=== PATIENT | female | born 1975 | race Caucasian/White ===

== ENCOUNTER 2016-05-25 06:26 | Inpatient (IN) | payer BC ==
[2016-05-14 12:58] VITALS: BMI 50.5
[~2016-05-25 06:26] MED LIST: DEXAMETHASONE SOD PHOSPHATE 10 MG/ML 1 ML VIAL IV ONE; ENOXAPARIN 40 MG/0.4 ML SYRINGE SQ ONE; FAMOTIDINE 20 MG/2 ML VIAL IV PRN; HYDROmorphone 1 MG/ML 1 ML SYRINGE IVP PRN; MIDAZOLAM 2 MG/2 ML VIAL IV PRN; SCOPOLAMINE 1.5MG/72HR PATCH TRANSDERM ONE
[2016-05-25] MEDS ORDERED: LIDOCAINE 1% 20 ML VIAL (10MG/ML) FOR IV START INTRADERMA ONE (06:55)
[2016-05-25] MEDS: LACTATED RINGERS 1,000 ML IV SCH (07:11)
[2016-05-25] MEDS ORDERED: METHYLENE BLUE 10 MG/ML 1 ML VIAL IRRIGATION ONE (07:20)
--- NOTE | 2016-05-25 07:47 | P.GSHP ---
History of Present Illness H&P Date: 05/25/16 Chief Complaint: Morbid obesity This a 41-year-old female who presents today for laparoscopic sleeve gastric. Patient's had previous LAP-BAND surgery. The LAP-BAND was removed secondary dysphagia. Patient has morbid obesity BMI 50. She understood the risks and benefits of the gastric sleeve procedure including conversion to the open procedure and injury to the stomach liver spleen and issues with the gastric staple line such as bleeding, perforation or obstruction. - Constitutional Constitutional: Reports as per HPI Past Medical History Past Medical History: Hyperlipidemia, Hypertension, Osteoarthritis (OA) Additional Past Medical History / Comment(s): MIGRAINE HEADACHES, ARTHRITIS IN JOINTS AND BACK PAIN. History of Any Multi-Drug Resistant Organisms: None Reported Past Surgical History: Bariatric Surgery, Section, Cholecystectomy, Tubal Ligation Additional Past Surgical History / Comment(s): D& C x1 (d/t miscarriage), C- section x2; Original lap band placed 2002 (had several revisions , lost 160 pounds and had a prolapse which led to band removal). 2 more attempts at replacing band. Past Anesthesia/Blood Transfusion Reactions: Motion Sickness, Postoperative Nausea & Vomiting (PONV) Additional Past Anesthesia/Blood Transfusion Reaction / Comment(s): SEVERE PONV. Past Psychological History: No Psychological Hx Reported Smoking Status: Never smoker Past Alcohol Use History: Rare Additional Past Alcohol Use History / Comment(s): twice/year Past Drug Use History: None Reported - Past Family History Mother Family Medical History: Deep Vein Thrombosis (DVT), Hyperlipidemia, Hypertension Additional Family Medical History / Comment(s): . Father Family Medical History: Cancer, CVA/TIA, Hyperlipidemia, Hypertension, Myocardial Infarction ([place]) Additional Family Medical History / Comment(s): severe alcoholic. Medications and Allergies Home Medications Medication Instructions Recorded Confirmed Type Aspirin EC [Ecotrin Low Dose] 81 mg PO HS 02/24/16 05/25/16 History Propranolol LA [Inderal LA] 60 mg PO BID 02/24/16 05/25/16 History Atorvastatin [Lipitor] 20 mg PO DAILY 05/14/16 05/25/16 History diphenhydrAMINE [Benadryl] 50 mg PO HS PRN 05/14/16 05/25/16 History Allergies Allergy/AdvReac Type Severity Reaction Status Date / Time Sulfa (Sulfonamide Allergy Unknown Verified 05/14/16 12:15 Antibiotics) Childhood Surgical - Exam Vital Signs Temp Pulse Resp BP Pulse Ox 97.9 F 71 16 119/74 96 05/25/16 06:50 05/25/16 06:50 05/25/16 06:50 05/25/16 06:50 05/25/16 06:50 - General well developed, no distress - Eyes PERRL - ENT normal pinna - Neck no masses - Respiratory normal expansion - Cardiovascular Rhythm: regular - Abdomen Abdomen: soft, non tender Assessment and Plan Plan: Morbid obesity. We'll perform laparoscopic sleeve gastrectomy.
[2016-05-25] MEDS ORDERED: ACETAMINOPHEN IV (For NPO) 1,000 MG in EMPTY BAG 1 BAG IVPB STA (07:49)
[2016-05-25] MEDS ORDERED: IBUPROFEN IV 400 MG in SODIUM CHLORIDE 0.9% 250 ML IV ONE (07:50)
[2016-05-25] MEDS ORDERED: IBUPROFEN IV 800 MG/8 ML VIAL IV ONE (07:57)
[2016-05-25] MEDS: ceFAZolin 3 GM in SODIUM CHLORIDE 0.9% 100 ML IVPB ONE ×3 (08:15→16:52)
[2016-05-25] MEDS ORDERED: BUPIVACAIN-EPI 0.25%-1:200,000 30 ML VIAL SQ ONE (08:18)
[2016-05-25] MEDS ORDERED: NALOXONE 0.4 MG/ML 1 ML VIAL IV PRN (09:21)
--- NOTE | 2016-05-25 09:21 | P.OP ---
Date of Procedure: 05/25/16 Preoperative Diagnosis: Morbid obesity BMI 50 50 Postoperative Diagnosis: Morbid obesity BMI 50 Procedure(s) Performed: Laparoscopic sleeve gastrectomy Anesthesia: LOBO Surgeon: Jose Raul Craft Estimated Blood Loss (ml): 20 Pathology: other (Stomach) Condition: stable Disposition: PACU Description of Procedure: MThe patient was placed on the operating room table in the supine position. She received general anesthesia and then was placed in dorsal lithotomy position. Her abdomen was prepped and draped in sterile fashion. The skin incision sites were anesthetized 1% local Xylocaine. And then the skin was incised with an 11 blade in the left lateral position. Using a blade less trocar under direct visualization the peritoneal cavity was entered. The abdomen was insufflated and then a 5 mm laparoscope was placed into the peritoneal cavity. A 5 mm trocar was placed in the right epigastric, and right lateral position. A 15 mm trocar was placed in the supra-umbilical position and another 5 mm trocar was placed in the left lateral position. The left lateral lobe of the liver was retracted. The stomach was visualized. The greater curvature of the stomach was then dissected using the Harmonic scissors. The dissection occurred approximately 5 cm from the pylorus to the level of the left [place]. There was no hiatal hernia seen. At this point a 40- Macedonian bougie dilator was placed the oropharynx and passed into the esophagus and into the stomach by the OUTBOARD TECHNICIAN. The sleeve gastrectomy was performed by using the powered echelon stapler with a seam guard buttress material. Sequential firings of the stapler were performed. The gastric remnant was then brought out through the 15 mm trocar site. The dilator was withdrawn. And a orogastric tube was replaced into the stomach. The stomach was insufflated with 200 mL of methylene blue normal saline. There was no evidence of extravasation. The abdomen was irrigated there is no bleeding seen. The Ezra -Talita device was used to close the 15 mm trocar with 0 Vicryl. Skin was closed with interrupted 3-0 Monocryl sutures once the trochars withdrawn. Dermabond dressing was applied. Patient was sent to recovery in stable condition.ctomy
[2016-05-25] MEDS: LACTATED RINGERS 1,000 ML IV ONE ×2 (10:20→11:33)
[2016-05-25] MEDS ORDERED: ONDANSETRON 4 MG/2 ML VIAL IVP ONE (11:52)
[2016-05-25] MEDS: ALBUTEROL NEBULIZED 2.5 MG/3 ML INHALATION SCH ×3 (12:29→21:39)
[2016-05-25] MEDS: 0.9% NACL WITH KCL 20 MEQ/L 1,000 ML IV SCH ×2 (12:43→19:10)
[2016-05-25] MEDS: KETOROLAC 30 MG/ML 1 ML VIAL IVP SCH ×3 (12:46→23:03)
[2016-05-25] MEDS: HYDROmorphone 1 MG/ML 1 ML SYRINGE IVP PRN (16:57)
[2016-05-25] MEDS ORDERED: ONDANSETRON 4 MG/2 ML VIAL IVP PRN (17:01)
[2016-05-26] MEDS: 0.9% NACL WITH KCL 20 MEQ/L 1,000 ML IV SCH ×2 (00:30→01:25)
[2016-05-26] MEDS: HYDROmorphone 1 MG/ML 1 ML SYRINGE IVP PRN (02:08)
[2016-05-26] MEDS: KETOROLAC 30 MG/ML 1 ML VIAL IVP SCH ×2 (06:03→13:08)
[2016-05-26] MEDS: LACTATED RINGERS 1,000 ML IV SCH (06:08)
[2016-05-26] MEDS ORDERED: 1: MVI, ADULT NO.4 WITH VIT K 10 ML, THIAMINE 100 MG, FOLIC ACID 1 MG, POTASSIUM CHLORID IV SCH ×6 (08:00)
[2016-05-26 08:26] LABS: Basophils % (A) 1 %; CH 30.3; CHCM 33.4; Eosinophils # (A) 0.1 k/uL (0-0.7); Eosinophils % (A) 1 %; HDW 2.87; HGB 12.8 gm/dL (11.4-16.0); Luc # (Auto) 0.17; Luc % (Auto) 2; Lymphocytes # (A) 1.9 k/uL (1.0-4.8); Lymphocytes % (A) 22 %; MCHC 32.8 g/dL (31.0-37.0); MCV 91.2 fL (80.0-100.0); Mean Platelet Volume 7.9; Monocytes # (A) 0.6 k/uL (0-1.0); Monocytes % (A) 7 %; Neutrophils % (A) 68 %; RBC 4.28 m/uL (3.80-5.40); RDW 13.8 % (11.5-15.5); WBC 8.7 k/uL (3.8-10.6); WBC (Perox) 8.96
[2016-05-26 08:35] LABS: Anion Gap 12 mmol/L; Blood Urea Nitrogen 9 mg/dL (7-17); Carbon Dioxide 23 mmol/L (22-30); Chloride 106 mmol/L (98-107); Non-African American GFR(MDRD) >60 (>60 ml/min/1.73 sqM); Potassium 4.5 mmol/L (3.5-5.1); Sodium 141 mmol/L (137-145)
[2016-05-26] MEDS ORDERED: PANTOPRAZOLE 40 MG/10 ML VIAL IV SCH (09:00)
[2016-05-26] MEDS ORDERED: ENOXAPARIN 60 MG/0.6 ML SYRINGE SQ SCH (09:00)
[2016-05-26] MEDS: ALBUTEROL NEBULIZED 2.5 MG/3 ML INHALATION SCH ×2 (09:02→11:34)
[2016-05-26] MEDS ORDERED: SODIUM CHLORIDE 0.9% 1,000 ML BAG ONE (09:04)
--- NOTE | 2016-05-26 09:34 | FL ---
EXAMINATION TYPE: FL UGI DATE OF EXAM: 05/26/2016 8:52 AM COMPARISON: NONE HISTORY: Status post gastric sleeve TECHNIQUE: A single contrast UGI study is performed. FINDINGS: Patient was given 50 cc Omni 350 orally, 42 seconds fluoroscopy time Attention directed to the gastroesophageal junction. No extravasation or obstruction to flow. Basilar atelectasis is noted incidentally. Contrast courses into the bowel. Surgical clips in the right uppe r quadrant. IMPRESSION: No evidence convocation status post gastric sleeve. Limited exam.
[2016-05-26] MEDS ORDERED: HYDROcodone/APAP 7.5-325MG 1 EACH TAB PO PRN (13:13)
[2016-05-26 14:29] VITALS: BP 129/77; PULSE 86; RESP 16; TEMP 97.9
--- NOTE | 2016-05-26 15:51 | P.DS ---
Providers Date of admission: 05/25/16 06:26 Expected date of discharge: 05/26/16 Attending physician: Jose Raul Craft Primary care physician: Armando Suárez MD Hospital Course: Patient is a 41-year-old female with medical history significant for morbid obesity and previous lap band surgery that was removed secondary to dysphagia. Patient presented to the hospital for elective laparoscopic sleeve gastrectomy. Patient tolerated procedure well. Upper GI series postsurgery with no evidence of leak or obstruction. Patient had an uneventful postop recovery. Patient was felt stable for discharge to home. Discharge diagnoses: 1. Morbid obesity status post laparoscopic sleeve gastrectomy. 2. History of previous lap band surgery with removal secondary to dysphagia. The above impression and plan have been discussed and directed by Dr. Craft. Christal RODRIGUEZ acting as scribe for Dr. Craft. Pertinent Studies: Upper GI series Procedures: Laparoscopic sleeve gastrectomy Patient Condition at Discharge: Good Plan - Discharge Summary New Discharge Prescriptions: HYDROcodone/APAP 7.5-325MG [Aladdin 7.5-325] 1 tab PO Q6HR PRN #28 tab PRN Reason: Pain Omeprazole [PriLOSEC] 40 mg PO DAILY #30 capsule. Ondansetron Odt [Zofran ODT] 8 mg PO Q8HR PRN #12 tab PRN Reason: Nausea Sucralfate [Carafate] 1 gm PO ACHS #90 tablet Discharge Medication List Aspirin EC [Ecotrin Low Dose] 81 mg PO HS 02/24/16 [History] Propranolol LA [Inderal LA] 60 mg PO BID 02/24/16 [History] Atorvastatin [Lipitor] 20 mg PO DAILY 05/14/16 [History] HYDROcodone/APAP 7.5-325MG [Aladdin 7.5-325] 1 tab PO Q6HR PRN #28 tab 05/26/16 [ Rx] Omeprazole [PriLOSEC] 40 mg PO DAILY #30 capsule. 05/26/16 [Rx] Ondansetron Odt [Zofran ODT] 8 mg PO Q8HR PRN #12 tab 05/26/16 [Rx] Sucralfate [Carafate] 1 gm PO ACHS #90 tablet 05/26/16 [Rx] Follow up Appointment(s)/Referral(s): Armando Suárez MD [Primary Care Provider] - 1 Week (No answer at office. Patient to call and schedule follow up appointment.) Jose Raul Craft MD [STAFF PHYSICIAN] - 06/08/16 2:00 pm (In bariatric clinic ) Patient Instructions/Handouts: *Surgery [facility] - Scopalamine Patch Instructions, Laparoscopic Sleeve Gastrectomy (DC) Activity/Diet/Wound Care/Special Instructions: No heavy lifting, pushing, or pulling items greater than 10 pounds. Bariatric diet as directed Shower daily, no soaking in bath tubs, pools, or hot tubs. No driving while taking pain medication. Notify surgeon with any signs or symptoms of infection, increased pain, or not tolerating diet. Discharge Disposition: HOME SELF-CARE
[2016-05-26] MEDS ORDERED: PROPRANOLOL LA 60 MG CAP.SA.24H PO SCH (21:00)
[2016-05-26] MEDS ORDERED: ASPIRIN 81 MG CHEW PO SCH (21:00)
[2016-05-27] MEDS ORDERED: ATORVASTATIN 20 MG TAB PO SCH (09:00)
== END 2016-05-26 15:10 | disposition home or self-care (01) | DRG 621 ==
LOC: 2ORWHC 06:26 → 3SUR 09:28
PROVIDERS: ADMIT Surgery; ATTEND Surgery
PROC: 0DB64Z3 Excision of Stomach, Percutaneous Endoscopic Approach, Vertical (ICD-10-PCS; principal; 2016-05-25 07:40)
DX: E66.01 Morbid (severe) obesity due to excess calories (principal); I10 Essential (primary) hypertension; E78.5 Hyperlipidemia, unspecified; M19.90 Unspecified osteoarthritis, unspecified site; G43.909 Migraine, unspecified, not intractable, without status migrainosus; M54.9 Dorsalgia, unspecified; Z68.43 Body mass index [BMI] 50.0-59.9, adult; Z98.84 Bariatric surgery status; Z79.82 Long term (current) use of aspirin; Z79.899 Other long term (current) drug therapy; Z88.2 Allergy status to sulfonamides; Z82.49 Family history of ischemic heart disease and other diseases of the circulatory system
CPT/HCPCS: 74240; 80051; 81025; 82565; 84520; 85025; 88307; 92950; 94002; 94640; 94760

== ENCOUNTER → 2016-06-08 | Outpatient (CLI) | payer BC ==
--- NOTE | 2016-06-08 15:49 | P.HPBAR ---
Bariatric H&P - History & Physicial H&P Date: 06/08/16 History & Physicial: Visit/CC: post sleeve Patient initial contact: Initial weight: 80.853 kg Initial weight in pounds: 178.25 Height: 5 ft 6.5 in Initial BMI: 28.3 Last weight: Current weight: 133.101 kg Current weight in pounds: 293.00 Current BMI: 46.6 [place] body weight (based on NIH guidelines): 60.101 kg Excess body weight loss: The patient is a 41 year-old F who presents for Bariatric Assessment. The patient presents for sleeve gastrectomy follow-up. She is approximately 2 weeks postop. She is doing quite well. She has no pain. Past Medical History Past Medical History: Hyperlipidemia, Hypertension, Osteoarthritis (OA) Additional Past Medical History / Comment(s): MIGRAINE HEADACHES, ARTHRITIS IN JOINTS AND BACK PAIN. History of Any Multi-Drug Resistant Organisms: None Reported Past Surgical History: Bariatric Surgery, Section, Cholecystectomy, Tubal Ligation Additional Past Surgical History / Comment(s): 05/25/16 laproscopic sleeve gastrectomy. Other surgical hx: D& C x1 (d/t miscarriage), x2; Original lap band placed 2002 (had several revisions , lost 160 pounds and had a prolapse which led to band removal). 2 more attempts at replacing band. Past Anesthesia/Blood Transfusion Reactions: Motion Sickness, Postoperative Nausea & Vomiting (PONV) Additional Past Anesthesia/Blood Transfusion Reaction / Comm: SEVERE PONV. Past Psychological History: No Psychological Hx Reported Smoking Status: Never smoker Past Alcohol Use History: Rare Additional Past Alcohol Use History / Comment(s): twice/year Past Drug Use History: None Reported - Past Family History Mother Family Medical History: Deep Vein Thrombosis (DVT), Hyperlipidemia, Hypertension Additional Family Medical History / Comment(s): . Father Family Medical History: Cancer, CVA/TIA, Hyperlipidemia, Hypertension, Myocardial Infarction ([place]) Additional Family Medical History / Comment(s): severe alcoholic. Surgical - Exam Vital Signs Temp Pulse Resp BP 98.4 F 74 16 157/99 06/08/16 14:07 06/08/16 14:07 06/08/16 14:07 06/08/16 14:07 - General well developed, no distress - Eyes PERRL - ENT normal pinna - Neck no masses - Respiratory normal expansion - Cardiovascular Rhythm: regular - Abdomen Abdomen: soft, non tender Bariatric Assessment & Plan Plan: Morbid obesity. Patient is status post sleeve yesterday. She is doing quite well. Her incision sites are clean dry and intact. She'll follow-up in one month. Bariatric Checklist Checklist: Plan: Checklist: EGD: 1. Hiatal hernia: 2. H. Pylori: HgbA1c: Vitamin D: Smoking: Never smoker Primary care physician referral: Psychiatry clearance: Cardiology clearance: Sleep study: Diet journal: VTE risk score: VTE risk level: Rehab needs at discharge:
== END | disposition home or self-care (01) ==
CPT/HCPCS: 99211

== ENCOUNTER → 2016-06-22 | Outpatient (CLI) | payer BC ==
[2016-06-22 13:09] VITALS: BP 129/77; PULSE 64; RESP 16; TEMP 98.2; BMI 45.8
--- NOTE | 2016-07-20 13:19 | P.HPBAR ---
Bariatric H&P - History & Physicial H&P Date: 06/22/16 History & Physicial: Visit/CC: sleeve follow-up Patient initial contact: Initial weight: 80.853 kg Initial weight in pounds: 178.25 Height: 5 ft 6.5 in Initial BMI: 28.3 Last weight: Current weight: 130.833 kg Current weight in pounds: 288.00 Current BMI: 45.8 [place] body weight (based on NIH guidelines): 60.101 kg Excess body weight loss: The patient is a 41 year-old F who presents for Bariatric Assessment. The patient presents for sleeve gastrectomy follow-up. She is prostate 1 month postop. She is doing well. She has some complaints of arthritis. She has elected to go on home O2 incentive a CPAP machine for sleep apnea. Review of Systems Constitutional: Reports as per HPI Past Medical History Past Medical History: Hyperlipidemia, Hypertension, Osteoarthritis (OA) Additional Past Medical History / Comment(s): MIGRAINE HEADACHES, ARTHRITIS IN JOINTS AND BACK PAIN. History of Any Multi-Drug Resistant Organisms: None Reported Past Surgical History: Bariatric Surgery, Section, Cholecystectomy, Tubal Ligation Additional Past Surgical History / Comment(s): 05/25/16 laproscopic sleeve gastrectomy. Other surgical hx: D& C x1 (d/t miscarriage), x2; Original lap band placed 2002 (had several revisions , lost 160 pounds and had a prolapse which led to band removal). 2 more attempts at replacing band. Past Anesthesia/Blood Transfusion Reactions: Motion Sickness, Postoperative Nausea & Vomiting (PONV) Additional Past Anesthesia/Blood Transfusion Reaction / Comm: SEVERE PONV. Past Psychological History: No Psychological Hx Reported Smoking Status: Never smoker Past Alcohol Use History: Rare Additional Past Alcohol Use History / Comment(s): twice/year Past Drug Use History: None Reported - Past Family History Mother Family Medical History: Deep Vein Thrombosis (DVT), Hyperlipidemia, Hypertension Additional Family Medical History / Comment(s): . Father Family Medical History: Cancer, CVA/TIA, Hyperlipidemia, Hypertension, Myocardial Infarction ([place]) Additional Family Medical History / Comment(s): severe alcoholic. Surgical - Exam Vital Signs Temp Pulse Resp BP 98.2 F 64 16 129/77 06/22/16 13:02 06/22/16 13:02 06/22/16 13:02 06/22/16 13:02 - General well developed, no distress - Eyes PERRL - ENT normal pinna - Neck no masses - Respiratory normal expansion - Cardiovascular Rhythm: regular - Abdomen Abdomen: soft, non tender Bariatric Assessment & Plan Plan: RBC slowly resolving. Status post sleeve yesterday. Patient is doing well. Her arthritis symptoms we observed. She'll follow-up in a month. Bariatric Checklist Checklist: Plan: Checklist: EGD: 1. Hiatal hernia: 2. H. Pylori: HgbA1c: Vitamin D: Smoking: Never smoker Primary care physician referral: Psychiatry clearance: Cardiology clearance: Sleep study: Diet journal: VTE risk score: VTE risk level: Rehab needs at discharge:
== END | disposition home or self-care (01) ==
LOC: BARWHC3 12:51
PROVIDERS: ATTEND Surgery
DX: Z71.3 Dietary counseling and surveillance (principal); E66.01 Morbid (severe) obesity due to excess calories; Z68.42 Body mass index [BMI] 45.0-49.9, adult
CPT/HCPCS: 99211

== ENCOUNTER → 2016-07-20 | Outpatient (CLI) | payer BC ==
[2016-07-20 13:25] VITALS: BP 139/88; PULSE 67; RESP 16; TEMP 98.7; BMI 44.4
--- NOTE | 2016-07-20 13:48 | P.HPBAR ---
Bariatric H&P - History & Physicial H&P Date: 07/20/16 History & Physicial: Visit/CC: sleeve follow-up Patient initial contact: Initial weight: 80.853 kg Initial weight in pounds: 178.25 Height: 5 ft 6.5 in Initial BMI: 28.3 Last weight: Current weight: 126.779 kg Current weight in pounds: 279.00 Current BMI: 44.4 [place] body weight (based on NIH guidelines): 60.101 kg Excess body weight loss: The patient is a 41 year-old F who presents for Bariatric Assessment. Patient presents for sleeve follow-up. She is doing very well. She has had minimal GERD symptoms. She has lost 9 pounds since her last visit. Past Medical History Past Medical History: Hyperlipidemia, Hypertension, Osteoarthritis (OA) Additional Past Medical History / Comment(s): MIGRAINE HEADACHES, ARTHRITIS IN JOINTS AND BACK PAIN. History of Any Multi-Drug Resistant Organisms: None Reported Past Surgical History: Bariatric Surgery, Section, Cholecystectomy, Tubal Ligation Additional Past Surgical History / Comment(s): 05/25/16 laproscopic sleeve gastrectomy. Other surgical hx: D& C x1 (d/t miscarriage), x2; Original lap band placed 2002 (had several revisions , lost 160 pounds and had a prolapse which led to band removal). 2 more attempts at replacing band. Past Anesthesia/Blood Transfusion Reactions: Motion Sickness, Postoperative Nausea & Vomiting (PONV) Additional Past Anesthesia/Blood Transfusion Reaction / Comm: SEVERE PONV. Past Psychological History: No Psychological Hx Reported Smoking Status: Never smoker Past Alcohol Use History: Rare Additional Past Alcohol Use History / Comment(s): twice/year Past Drug Use History: None Reported - Past Family History Mother Family Medical History: Deep Vein Thrombosis (DVT), Hyperlipidemia, Hypertension Additional Family Medical History / Comment(s): . Father Family Medical History: Cancer, CVA/TIA, Hyperlipidemia, Hypertension, Myocardial Infarction ([place]) Additional Family Medical History / Comment(s): severe alcoholic. Surgical - Exam Vital Signs Temp Pulse Resp BP 98.7 F 67 16 139/88 07/20/16 13:21 07/20/16 13:21 07/20/16 13:21 07/20/16 13:21 - General well developed - Abdomen Abdomen: soft, non tender Bariatric Assessment & Plan Plan: Status post sleeve yesterday. Patient has some minimal GERD symptoms which will be observed. She'll currently take Prilosec daily. The patient will follow-up in one month. Bariatric Checklist Checklist: Plan: Checklist: EGD: 1. Hiatal hernia: 2. H. Pylori: HgbA1c: Vitamin D: Smoking: Never smoker Primary care physician referral: Dr. Kamini Mcneal Psychiatry clearance: Cardiology clearance: Sleep study: Diet journal: VTE risk score: VTE risk level: Rehab needs at discharge:
== END | disposition home or self-care (01) ==
LOC: BARWHC3 12:59
PROVIDERS: ATTEND Surgery
DX: Z48.815 Encounter for surgical aftercare following surgery on the digestive system (principal); Z71.3 Dietary counseling and surveillance; E66.01 Morbid (severe) obesity due to excess calories; Z68.41 Body mass index [BMI] 40.0-44.9, adult; K21.9 Gastro-esophageal reflux disease without esophagitis; Z98.84 Bariatric surgery status; Z79.899 Other long term (current) drug therapy
CPT/HCPCS: 99211

== ENCOUNTER → 2016-09-21 | Outpatient (CLI) | payer BC ==
[2016-09-21 14:01] VITALS: BP 143/89; PULSE 90; TEMP 97.7; BMI 42.7
--- NOTE | 2016-09-21 16:45 | P.HPBAR ---
Bariatric H&P - History & Physicial H&P Date: 09/21/16 History & Physicial: Visit/CC: three month follow up Patient initial contact: Initial weight: 80.853 kg Initial weight in pounds: 178.25 Height: 5 ft 6.5 in Initial BMI: 28.3 Last weight: Current weight: 121.971 kg Current weight in pounds: 268.90 Current BMI: 42.7 [place] body weight (based on NIH guidelines): 60.101 kg Excess body weight loss: The patient is a 41 year-old F who presents for Bariatric Assessment. Patient presents today for sleeve gastrectomy fall. She has lost 11 pounds since her last visit. She has some minimal GERD. Past Medical History Past Medical History: Hyperlipidemia, Hypertension, Osteoarthritis (OA) Additional Past Medical History / Comment(s): MIGRAINE HEADACHES, ARTHRITIS IN JOINTS AND BACK PAIN. History of Any Multi-Drug Resistant Organisms: None Reported Past Surgical History: Bariatric Surgery, Section, Cholecystectomy, Tubal Ligation Additional Past Surgical History / Comment(s): 05/25/16 laproscopic sleeve gastrectomy. Other surgical hx: D& C x1 (d/t miscarriage), x2; Original lap band placed 2002 (had several revisions , lost 160 pounds and had a prolapse which led to band removal). 2 more attempts at replacing band. Past Anesthesia/Blood Transfusion Reactions: Motion Sickness, Postoperative Nausea & Vomiting (PONV) Additional Past Anesthesia/Blood Transfusion Reaction / Comm: SEVERE PONV. Past Psychological History: No Psychological Hx Reported Smoking Status: Never smoker Past Alcohol Use History: Rare Additional Past Alcohol Use History / Comment(s): twice/year Past Drug Use History: None Reported - Past Family History Mother Family Medical History: Deep Vein Thrombosis (DVT), Hyperlipidemia, Hypertension Additional Family Medical History / Comment(s): . Father Family Medical History: Cancer, CVA/TIA, Hyperlipidemia, Hypertension, Myocardial Infarction ([place]) Additional Family Medical History / Comment(s): severe alcoholic. Surgical - Exam Vital Signs Temp Pulse BP 97.7 F 90 143/89 09/21/16 13:46 09/21/16 13:46 09/21/16 13:46 - General well developed, no distress - Eyes PERRL - ENT normal pinna - Neck no masses - Respiratory normal expansion - Cardiovascular Rhythm: regular - Abdomen Abdomen: soft, non tender Bariatric Assessment & Plan Plan: The patient is doing well from her sleeve yesterday. Her GERD symptoms we will observe. She'll follow-up in one month. Bariatric Checklist Checklist: Plan: Checklist: EGD: 1. Hiatal hernia: 2. H. Pylori: HgbA1c: Vitamin D: Smoking: Never smoker Primary care physician referral: Dr. Kamini Mcneal Psychiatry clearance: Cardiology clearance: Sleep study: Diet journal: VTE risk score: VTE risk level: Rehab needs at discharge:
== END | disposition home or self-care (01) ==
LOC: BARWHC3 13:12
PROVIDERS: ATTEND Surgery
DX: E66.01 Morbid (severe) obesity due to excess calories (principal); E78.5 Hyperlipidemia, unspecified; I10 Essential (primary) hypertension; M19.90 Unspecified osteoarthritis, unspecified site; Z68.41 Body mass index [BMI] 40.0-44.9, adult
CPT/HCPCS: 97803; 99211

== ENCOUNTER → 2016-11-09 | Outpatient (CLI) | payer BC ==
[2016-11-09 14:04] VITALS: BP 137/73; PULSE 69; RESP 16; TEMP 98.6; BMI 42.2
--- NOTE | 2016-11-23 17:14 | P.HPBAR ---
Bariatric H&P - History & Physicial H&P Date: 11/09/16 History & Physicial: Visit/CC: sleeve follow up Patient initial contact: Initial weight: 80.853 kg Initial weight in pounds: 178.25 Height: 5 ft 6.5 in Initial BMI: 28.3 Last weight: Current weight: 120.372 kg Current weight in pounds: 265.00 Current BMI: 42.2 [place] body weight (based on NIH guidelines): 60.101 kg Excess body weight loss: The patient is a 41 year-old F who presents for Bariatric Assessment. Patient presents today for sleeve gastrectomy fall. She is doing quite well. She's had poor weight loss last month. Her GERD symptoms are minimal. Past Medical History Past Medical History: Hyperlipidemia, Hypertension, Osteoarthritis (OA) Additional Past Medical History / Comment(s): MIGRAINE HEADACHES, ARTHRITIS IN JOINTS AND BACK PAIN. History of Any Multi-Drug Resistant Organisms: None Reported Past Surgical History: Bariatric Surgery, Section, Cholecystectomy, Tubal Ligation Additional Past Surgical History / Comment(s): 05/25/16 laproscopic sleeve gastrectomy. Other surgical hx: D& C x1 (d/t miscarriage), x2; Original lap band placed 2002 (had several revisions , lost 160 pounds and had a prolapse which led to band removal). 2 more attempts at replacing band. Past Anesthesia/Blood Transfusion Reactions: Motion Sickness, Postoperative Nausea & Vomiting (PONV) Additional Past Anesthesia/Blood Transfusion Reaction / Comm: SEVERE PONV. Past Psychological History: No Psychological Hx Reported Smoking Status: Never smoker - Past Family History Mother Family Medical History: Deep Vein Thrombosis (DVT), Hyperlipidemia, Hypertension Additional Family Medical History / Comment(s): . Father Family Medical History: Cancer, CVA/TIA, Hyperlipidemia, Hypertension, Myocardial Infarction ([place]) Additional Family Medical History / Comment(s): severe alcoholic. Surgical - Exam Vital Signs Temp Pulse Resp BP 98.6 F 69 16 137/73 11/09/16 14:02 11/09/16 14:02 11/09/16 14:02 11/09/16 14:02 - General well developed, no distress - Eyes PERRL - ENT normal pinna - Abdomen Abdomen: soft, non tender Bariatric Assessment & Plan Plan: Status post sleeve gastrectomy. Patient will attempt to reduce her calories via dieting. Her GERD symptoms are minimal be observed. She'll follow-up in one month. Bariatric Checklist Checklist: Plan: Checklist: EGD: 1. Hiatal hernia: 2. H. Pylori: HgbA1c: Vitamin D: Smoking: Never smoker Primary care physician referral: Dr. Kamini Mcneal Psychiatry clearance: Cardiology clearance: Sleep study: Diet journal: VTE risk score: VTE risk level: Rehab needs at discharge:
== END | disposition home or self-care (01) ==
LOC: BARWHC3 13:03
PROVIDERS: ATTEND Surgery
DX: Z09 Encounter for follow-up examination after completed treatment for conditions other than malignant neoplasm (principal); E78.5 Hyperlipidemia, unspecified; I10 Essential (primary) hypertension; Z98.84 Bariatric surgery status
CPT/HCPCS: 99211

== ENCOUNTER → 2017-01-25 | Outpatient (CLI) | payer BC ==
[2017-01-25 13:22] VITALS: BP 126/90; PULSE 62; RESP 62; TEMP 98.2; BMI 41.6
--- NOTE | 2017-01-25 13:45 | P.HPBAR ---
Bariatric H&P - History & Physicial H&P Date: 01/25/17 History & Physicial: Visit/CC: sleeve follow up Patient initial contact: Initial weight: 80.853 kg Initial weight in pounds: 178.25 Height: 5 ft 6.5 in Initial BMI: 28.3 Last weight: 266 Current weight: 118.841 kg Current weight in pounds: 262.00 Current BMI: 41.6 [place] body weight (based on NIH guidelines): 60.101 kg Excess body weight loss: The patient is a 41 year-old F who presents for Bariatric Assessment. Patient presents today for sleeve gastrectomy follow-up. She has been sick recently due to ureteral stones. She had a stent placed. She just now has started to feel normal again. He's had some minimal GERD symptoms. Past Medical History Past Medical History: Hyperlipidemia, Hypertension, Osteoarthritis (OA) Additional Past Medical History / Comment(s): MIGRAINE HEADACHES, ARTHRITIS IN JOINTS AND BACK PAIN. History of Any Multi-Drug Resistant Organisms: None Reported Past Surgical History: Bariatric Surgery, Section, Cholecystectomy, Tubal Ligation Additional Past Surgical History / Comment(s): 05/25/16 laproscopic sleeve gastrectomy. Other surgical hx: D& C x1 (d/t miscarriage), x2; Original lap band placed 2002 (had several revisions , lost 160 pounds and had a prolapse which led to band removal). 2 more attempts at replacing band. Past Anesthesia/Blood Transfusion Reactions: Motion Sickness, Postoperative Nausea & Vomiting (PONV) Additional Past Anesthesia/Blood Transfusion Reaction / Comm: SEVERE PONV. Past Psychological History: No Psychological Hx Reported Smoking Status: Never smoker Past Alcohol Use History: Rare Additional Past Alcohol Use History / Comment(s): twice/year Past Drug Use History: None Reported - Past Family History Mother Family Medical History: Deep Vein Thrombosis (DVT), Hyperlipidemia, Hypertension Additional Family Medical History / Comment(s): . Father Family Medical History: Cancer, CVA/TIA, Hyperlipidemia, Hypertension, Myocardial Infarction ([place]) Additional Family Medical History / Comment(s): severe alcoholic. Surgical - Exam Vital Signs Temp Pulse Resp BP 98.2 F 62 62 H 126/90 01/25/17 13:18 01/25/17 13:18 01/25/17 13:18 01/25/17 13:18 - General well developed, no distress - Eyes PERRL - Abdomen Abdomen: soft, non tender Bariatric Assessment & Plan Plan: Status post sleeve yesterday. Patient has had some minimal GERD. This will be observed. The patient will focus on her diet and lifestyle changes for improvement weight loss. Bariatric Checklist Checklist: Plan: Checklist: EGD: 1. Hiatal hernia: 2. H. Pylori: HgbA1c: Vitamin D: Smoking: Never smoker Primary care physician referral: Dr. Kamini Mcneal Psychiatry clearance: Cardiology clearance: Sleep study: Diet journal: VTE risk score: VTE risk level: Rehab needs at discharge:
== END ==
LOC: BARWHC3 12:43
PROVIDERS: ATTEND Surgery
DX: Z48.815 Encounter for surgical aftercare following surgery on the digestive system (principal); Z98.84 Bariatric surgery status; E66.01 Morbid (severe) obesity due to excess calories; K21.9 Gastro-esophageal reflux disease without esophagitis
CPT/HCPCS: 97803; 99211

== ENCOUNTER → 2017-02-22 | Outpatient (CLI) | payer BC ==
[2017-02-22 13:53] VITALS: BMI 41.5
--- NOTE | 2017-02-22 16:24 | P.HPBAR ---
Bariatric H&P - History & Physicial H&P Date: 02/22/17 History & Physicial: Visit/CC: sleeve f/u (May 2016) Patient initial contact: Initial weight: 142.882 kg Initial weight in pounds: 315.00 Height: 5 ft 6.5 in Initial BMI: 50.1 Last weight: Current weight: 118.569 kg Current weight in pounds: 261.40 Current BMI: 41.5 [place] body weight (based on NIH guidelines): 60.101 kg Excess body weight loss: 29.3% The patient is a 42 year-old F who presents for Bariatric Assessment. Patient presents today for sleeve gastrectomy follow-up. She's had some recent issues with hypotension and GERD. She is being evaluated by her crm coordinator. She is scheduled for a tilt table test. She denies any dysphagia. Past Medical History Past Medical History: Hyperlipidemia, Hypertension, Osteoarthritis (OA), Renal Disease Additional Past Medical History / Comment(s): MIGRAINE HEADACHES, ARTHRITIS IN JOINTS AND BACK PAIN. ON 02/22/17: patient states she has to have a tilt table test due to recent hypotension. Kidney stones (Jan 2017) History of Any Multi-Drug Resistant Organisms: None Reported Past Surgical History: Bariatric Surgery, Section, Cholecystectomy, Tubal Ligation Additional Past Surgical History / Comment(s): 05/25/16 laproscopic sleeve gastrectomy. Other surgical hx: D& C x1 (d/t miscarriage), x2; Original lap band placed 2002 (had several revisions , lost 160 pounds and had a prolapse which led to band removal). 2 more attempts at replacing band. Past Anesthesia/Blood Transfusion Reactions: Motion Sickness, Postoperative Nausea & Vomiting (PONV) Additional Past Anesthesia/Blood Transfusion Reaction / Comm: SEVERE PONV. Past Psychological History: No Psychological Hx Reported Smoking Status: Never smoker Past Alcohol Use History: Rare Additional Past Alcohol Use History / Comment(s): twice/year Past Drug Use History: None Reported - Past Family History Mother Family Medical History: Deep Vein Thrombosis (DVT), Hyperlipidemia, Hypertension Additional Family Medical History / Comment(s): . Father Family Medical History: Cancer, CVA/TIA, Hyperlipidemia, Hypertension, Myocardial Infarction ([place]) Additional Family Medical History / Comment(s): severe alcoholic. Surgical - Exam - General well developed, no distress - Eyes PERRL - Abdomen Abdomen: soft, non tender Bariatric Assessment & Plan Plan: The patient has gained some weight. Her GERD symptoms are minimal abuser. She' ll follow-up in 8 weeks for recheck. Bariatric Checklist Checklist: Plan: Checklist: EGD: 1. Hiatal hernia: 2. H. Pylori: HgbA1c: Vitamin D: Smoking: Never smoker Primary care physician referral: Dr. Suárez ([place]) Psychiatry clearance: Cardiology clearance: Sleep study: Diet journal: VTE risk score: VTE risk level: Rehab needs at discharge:
== END | disposition home or self-care (01) ==
LOC: BARWHC3 13:21
PROVIDERS: ATTEND Surgery
DX: Z48.815 Encounter for surgical aftercare following surgery on the digestive system (principal); K21.9 Gastro-esophageal reflux disease without esophagitis; Z98.84 Bariatric surgery status
CPT/HCPCS: 99211

== ENCOUNTER → 2017-06-07 | Outpatient (CLI) | payer BC ==
[2017-06-07 13:39] VITALS: BMI 40.3
[2017-06-07 13:44] VITALS: BP 110/67; PULSE 72; TEMP 97.8
--- NOTE | 2017-06-07 16:37 | P.HPBAR ---
Bariatric H&P - History & Physicial H&P Date: 06/07/17 History & Physicial: Visit/CC: one year follow up Patient initial contact: Initial weight: 142.882 kg Initial weight in pounds: 315.00 Height: 5 ft 6.5 in Initial BMI: 50.1 Last weight: Current weight: 115.031 kg Current weight in pounds: 253.60 Current BMI: 40.3 [place] body weight (based on NIH guidelines): 60.328 kg Excess body weight loss: 33.6% The patient is a 42 year-old F who presents for Bariatric Assessment. The patient presents today for sleeve gastrectomy follow-up. She is lost 8 pounds her last visit. She has had trouble with some kidney stones and diabetes. Her hemoglobin A1c is 6.5. Past Medical History Past Medical History: Diabetes Mellitus, Hyperlipidemia, Hypertension, Osteoarthritis (OA), Renal Disease Additional Past Medical History / Comment(s): MIGRAINE HEADACHES, ARTHRITIS IN JOINTS AND BACK PAIN. ON 02/22/17: patient states she has to have a tilt table test due to recent hypotension. Kidney stones (Jan 2017) kidney stones 1-18 History of Any Multi-Drug Resistant Organisms: None Reported Past Surgical History: Bariatric Surgery, Section, Cholecystectomy, Tubal Ligation Additional Past Surgical History / Comment(s): 05/25/16 laproscopic sleeve gastrectomy. Other surgical hx: D& C x1 (d/t miscarriage), x2; Original lap band placed 2002 (had several revisions , lost 160 pounds and had a prolapse which led to band removal). 2 more attempts at replacing band. Past Anesthesia/Blood Transfusion Reactions: Motion Sickness, Postoperative Nausea & Vomiting (PONV) Additional Past Anesthesia/Blood Transfusion Reaction / Comm: SEVERE PONV. Past Psychological History: No Psychological Hx Reported Smoking Status: Never smoker Past Alcohol Use History: Rare Additional Past Alcohol Use History / Comment(s): twice/year Past Drug Use History: None Reported - Past Family History Mother Family Medical History: Deep Vein Thrombosis (DVT), Hyperlipidemia, Hypertension Additional Family Medical History / Comment(s): . Father Family Medical History: Cancer, CVA/TIA, Hyperlipidemia, Hypertension, Myocardial Infarction ([place]) Additional Family Medical History / Comment(s): severe alcoholic. Surgical - Exam Vital Signs Temp Pulse BP 97.8 F 72 110/67 06/07/17 13:24 06/07/17 13:24 06/07/17 13:24 - General well developed, no distress - Eyes PERRL - ENT normal pinna - Neck no masses - Abdomen Abdomen: soft, non tender Bariatric Assessment & Plan Plan: Status post sleeve yesterday. Patient is doing fairly well. Her diabetes was managed by diet and exercise. Her GERD symptoms are minimal will be observed. She'll follow-up in 8 weeks.. Bariatric Checklist Checklist: Plan: Checklist: EGD: 1. Hiatal hernia: 2. H. Pylori: HgbA1c: Vitamin D: Smoking: Never smoker Primary care physician referral: Dr. Suárez ([place]) Psychiatry clearance: Cardiology clearance: Sleep study: Diet journal: VTE risk score: VTE risk level: Rehab needs at discharge:
== END | disposition home or self-care (01) ==
LOC: BARWHC3 12:49
PROVIDERS: ATTEND Surgery
DX: Z48.815 Encounter for surgical aftercare following surgery on the digestive system (principal); E66.01 Morbid (severe) obesity due to excess calories; K21.9 Gastro-esophageal reflux disease without esophagitis; E11.9 Type 2 diabetes mellitus without complications; Z71.3 Dietary counseling and surveillance; Z98.84 Bariatric surgery status; Z68.41 Body mass index [BMI] 40.0-44.9, adult
CPT/HCPCS: 97803; 99211

== ENCOUNTER → 2018-06-06 | Outpatient (CLI) | payer BC ==
[2018-06-06 13:33] VITALS: BP 113/78; PULSE 73; RESP 16; TEMP 98.2; BMI 41.8
--- NOTE | 2018-06-06 14:45 | P.HPBAR ---
Bariatric H&P - History & Physicial H&P Date: 06/06/18 History & Physicial: Visit/CC: sleeve follow-up Patient initial contact: Initial weight: 142.882 kg Initial weight in pounds: 315.00 Height: 5 ft 6.5 in Initial BMI: 50.1 Last weight: Current weight: 119.295 kg Current weight in pounds: 263.00 Current BMI: 41.8 [place] body weight (based on NIH guidelines): 60.101 kg Excess body weight loss: 28.4% The patient is a 43 year-old F who presents for Bariatric Assessment. Sedation for sleeve gastrectomy follow-up. She has gained 10 pounds her last visit. Patient admits to poor dietary choices. Past Medical History Past Medical History: Diabetes Mellitus, Hyperlipidemia, Hypertension, Osteoarthritis (OA), Renal Disease Additional Past Medical History / Comment(s): MIGRAINE HEADACHES, ARTHRITIS IN JOINTS AND BACK PAIN. ON 02/22/17: patient states she has to have a tilt table test due to recent hypotension. Kidney stones (Jan 2017) kidney stones 1-18 History of Any Multi-Drug Resistant Organisms: None Reported Past Surgical History: Bariatric Surgery, Section, Cholecystectomy, Tubal Ligation Additional Past Surgical History / Comment(s): 05/25/16 laproscopic sleeve gastrectomy. Other surgical hx: D& C x1 (d/t miscarriage), x2; Original lap band placed 2002 (had several revisions , lost 160 pounds and had a prolapse which led to band removal). 2 more attempts at replacing band. Past Anesthesia/Blood Transfusion Reactions: Motion Sickness, Postoperative Nausea & Vomiting (PONV) Additional Past Anesthesia/Blood Transfusion Reaction / Comm: SEVERE PONV. Past Psychological History: No Psychological Hx Reported Smoking Status: Never smoker Past Alcohol Use History: Rare Additional Past Alcohol Use History / Comment(s): twice/year Past Drug Use History: None Reported - Past Family History Mother Family Medical History: Deep Vein Thrombosis (DVT), Hyperlipidemia, Hypertension Additional Family Medical History / Comment(s): . Father Family Medical History: Cancer, CVA/TIA, Hyperlipidemia, Hypertension, Myocardial Infarction ([place]) Additional Family Medical History / Comment(s): severe alcoholic. Surgical - Exam Vital Signs Temp Pulse Resp BP 98.2 F 73 16 113/78 06/06/18 13:30 06/06/18 13:30 06/06/18 13:30 06/06/18 13:30 - General well developed, well nourished - Eyes PERRL - ENT normal pinna - Abdomen Abdomen: soft, non tender Bariatric Assessment & Plan Plan: There is minimal. He'll be observed. Her morbid obesity is worsened. Patient will attempt to diet this month and make appropriate food choices. Her morbid obesity is worsened. Her BMI is 42. Bariatric Checklist Checklist: Plan: Checklist: EGD: 1. Hiatal hernia: 2. H. Pylori: HgbA1c: Vitamin D: Smoking: Never smoker Primary care physician referral: Dr. Suárez ([place]) Psychiatry clearance: Cardiology clearance: Sleep study: Diet journal: VTE risk score: VTE risk level: Rehab needs at discharge:
== END | disposition home or self-care (01) ==
LOC: BARWHC3 12:36
PROVIDERS: ATTEND Surgery
DX: Z48.815 Encounter for surgical aftercare following surgery on the digestive system (principal); E66.01 Morbid (severe) obesity due to excess calories; Z68.41 Body mass index [BMI] 40.0-44.9, adult; Z90.49 Acquired absence of other specified parts of digestive tract; Z98.890 Other specified postprocedural states
CPT/HCPCS: 99211

== ENCOUNTER → 2018-07-18 | Outpatient (CLI) | payer BC ==
[2018-07-18 13:50] VITALS: BP 129/81; TEMP 97.9; BMI 41.0
--- NOTE | 2018-07-18 14:48 | P.HPBAR ---
Bariatric H&P - History & Physicial H&P Date: 07/18/18 History & Physicial: Visit/CC: sleeve f/u Patient initial contact: Initial weight: 142.882 kg Initial weight in pounds: 315.00 Height: 5 ft 6.5 in Initial BMI: 50.1 Last weight: Current weight: 117.027 kg Current weight in pounds: 258.00 Current BMI: 41.0 [place] body weight (based on NIH guidelines): 60.101 kg Excess body weight loss: 31.2% The patient is a 43 year-old F who presents for Bariatric Assessment. Patient presents today for sleeve gastrectomy follow-up. She has lost 6 pounds since her last visit. She is improved her diet. She's had some minimal GERD. Past Medical History Past Medical History: Diabetes Mellitus, Hyperlipidemia, Hypertension, Osteoarthritis (OA), Renal Disease Additional Past Medical History / Comment(s): MIGRAINE HEADACHES, ARTHRITIS IN JOINTS AND BACK PAIN. ON 02/22/17: patient states she has to have a tilt table test due to recent hypotension. Kidney stones (Jan 2017) kidney stones 1-18 History of Any Multi-Drug Resistant Organisms: None Reported Past Surgical History: Bariatric Surgery, Section, Cholecystectomy, Tubal Ligation Additional Past Surgical History / Comment(s): 05/25/16 laproscopic sleeve gastrectomy. Other surgical hx: D& C x1 (d/t miscarriage), x2; Original lap band placed 2002 (had several revisions , lost 160 pounds and had a prolapse which led to band removal). 2 more attempts at replacing band. Past Anesthesia/Blood Transfusion Reactions: Motion Sickness, Postoperative Nausea & Vomiting (PONV) Additional Past Anesthesia/Blood Transfusion Reaction / Comm: SEVERE PONV. Past Psychological History: No Psychological Hx Reported Smoking Status: Never smoker Past Alcohol Use History: Rare Additional Past Alcohol Use History / Comment(s): twice/year Past Drug Use History: None Reported - Past Family History Mother Family Medical History: Deep Vein Thrombosis (DVT), Hyperlipidemia, Hypertension Additional Family Medical History / Comment(s): . Father Family Medical History: Cancer, CVA/TIA, Hyperlipidemia, Hypertension, Myocardial Infarction ([place]) Additional Family Medical History / Comment(s): severe alcoholic. Surgical - Exam Vital Signs Temp BP 97.9 F 129/81 07/18/18 13:45 07/18/18 13:45 - General well developed, well nourished, no distress - Eyes PERRL - ENT normal pinna - Neck no masses - Respiratory normal expansion - Abdomen Abdomen: soft, non tender Bariatric Assessment & Plan Plan: Status post sleeve gastrectomy. Patient is doing quite well. Her GERD is minimal will be observed. She'll follow-up in 8 weeks. Bariatric Checklist Checklist: Plan: Checklist: EGD: 1. Hiatal hernia: 2. H. Pylori: HgbA1c: Vitamin D: Smoking: Never smoker Primary care physician referral: Dr. Suárez ([place]) Psychiatry clearance: Cardiology clearance: Sleep study: Diet journal: VTE risk score: VTE risk level: Rehab needs at discharge:
[2018-07-18 15:09] LABS: Anisocytosis Slight; HCT 29.3 % (34.0-46.0); HGB 8.4 gm/dL (11.4-16.0); Hypochromasia Marked; MCH 19.3 pg (25.0-35.0); MCHC 28.6 g/dL (31.0-37.0); MCV 67.6 fL (80.0-100.0); Mean Platelet Volume 8.4; Microcytosis Marked; Platelet Count 269 k/uL (150-450); RBC 4.33 m/uL (3.80-5.40); RDW 17.4 % (11.5-15.5); WBC 6.8 k/uL (3.8-10.6)
[2018-07-18 20:10] LABS: Vitamin D 25 Hydroxy 15.5 ng/mL (30.0-100.0)
[2018-07-18 20:18] LABS: Iron Saturation 2.7 (12.00-45.00)
[2018-07-18 20:27] LABS: Albumin 4.3 g/dL (3.80-4.90); Albumin/Globulin Ratio 2.05 (1.60-3.17); Anion Gap 9.8 mmol/L (4.00-12.00); Calcium 9.2 mg/dL (8.7-10.3); Carbon Dioxide 18.2 mmol/L (21.6-31.8); Globulin 2.1 g/dL (1.6-3.3); Potassium 4.6 mmol/L (3.5-5.5); Total Bilirubin 0.3 mg/dL (0.3-1.2); Total Protein 6.4 g/dL (6.2-8.2)
== END ==
LOC: BARWHC3 12:47
PROVIDERS: ATTEND Surgery
DX: Z48.815 Encounter for surgical aftercare following surgery on the digestive system (principal); K21.9 Gastro-esophageal reflux disease without esophagitis; E66.01 Morbid (severe) obesity due to excess calories; D50.8 Other iron deficiency anemias; E44.0 Moderate protein-calorie malnutrition; E45 Retarded development following protein-calorie malnutrition; E55.9 Vitamin D deficiency, unspecified; Z98.84 Bariatric surgery status; Z68.41 Body mass index [BMI] 40.0-44.9, adult
CPT/HCPCS: 80053; 82306; 82607; 82728; 83540; 83550; 84443; 85027; 97803; 99211